=== PATIENT | male | born 1960 | race Two or more races ===

== ENCOUNTER 2022-11-12 06:51 | Day surgery (SDC) | payer OTHER | END 2022-11-12 11:45 | disposition home or self-care (01) | LOC: AMB-ENDOS 06:51 | PROVIDERS: ATTEND Surgery | DX: D12.2 Benign neoplasm of ascending colon (principal); D37.4 Neoplasm of uncertain behavior of colon; K62.7 Radiation proctitis; Z20.822 Contact with and (suspected) exposure to COVID-19 ==